=== PATIENT | female | born 2000 | race African-American/Black ===

== ENCOUNTER 2020-09-22 01:20 | Emergency (ER) | payer SELFPAY ==
[~2020-09-22] VITALS: Ht 165.1 cm; Wt 92.0 kg
[2020-09-22 01:36] VITALS: BP 112/82
[2020-09-22] MEDS ORDERED: ACETAMINOPHEN 500MG TABLET PO ONE (02:00)
== END 2020-09-22 02:30 | disposition left against medical advice (07) ==
LOC: ER 01:20
DX: R51.9 Headache, unspecified (principal); J45.909 Unspecified asthma, uncomplicated; Z91.02 Food additives allergy status
CPT/HCPCS: 99283